=== PATIENT | female | born 1955 | race Caucasian/White ===

== ENCOUNTER 2018-12-29 07:02 | Inpatient (IN) | payer MEDICAID ==
[~2018-12-29] VITALS: Ht 160 cm; Wt 103.0 kg
[~2018-12-29 07:02] MED LIST: ATOR40TA70 PO; CELE200C PO; METO100T16 PO
[2018-12-29] MEDS ORDERED: LACTATED RINGERS 1,000 ML IV SCH (08:30)
[2018-12-29 08:36] LABS: BASOPHILS % 0.5 % (0.0-2.0); EOSINOPHILS % 2.6 % (0.0-5.0); HEMATOCRIT. 42.6 % (36.0-48.0); HEMOGLOBIN. 14.8 g/dL (12.0-16.0); LYMPHOCYTES % 35.1 % (20.0-50.0); MEAN CORPUSCULAR HEMOGLOBIN 30.9 pg (28.0-32.0); MEAN CORPUSCULAR VOLUME 89.2 fL (81.0-99.0); MEAN PLATELET VOLUME 7.7 fl (7.4-10.4); MONOCYTES % 7.5 % (2.0-8.0); NEUTROPHILS % 54.3 % (40.0-76.0); PLATELET 257 x1000/uL (130-400); RED BLOOD CELL COUNT 4.77 mill/uL (4.2-5.4); RED CELL DISTRIBUTION WIDTH 14.3 % (11.6-14.6)
[2018-12-29 08:44] LABS: CHLORIDE 107 mEq/L (98-107)
[2018-12-29 08:45] LABS: PARTIAL THROMBOPLASTIN TIME 27.6 sec (23.4-31.0); PROTHROMBIN TIME 10.6 sec (9.6-11.0)
[2018-12-29 08:52] LABS: CLARITY URINE CLOUDY (CLEAR); COLOR URINE YELLOW (YELLOW); KETONES URINE NEGATIVE (NEGATIVE); LEUKOCYTE ESTERASE URINE TRACE (NEGATIVE); NITRITE URINE NEGATIVE (NEGATIVE); OCCULT BLOOD URINE NEGATIVE (NEGATIVE); PROTEIN URINE NEGATIVE (NEGATIVE); SPECIFIC GRAVITY URINE 1.026 (1.005-1.030); UROBILINOGEN URINE 0.2 E.U./dL (0.2-1.0)
[2018-12-29] MEDS ORDERED: CODE1CAP35 PO (09:23)
[2018-12-29 11:25] LABS: CLARITY URINE CLEAR (CLEAR); COLOR URINE YELLOW (YELLOW); KETONES URINE NEGATIVE (NEGATIVE); LEUKOCYTE ESTERASE URINE NEGATIVE (NEGATIVE); NITRITE URINE NEGATIVE (NEGATIVE); OCCULT BLOOD URINE NEGATIVE (NEGATIVE); PROTEIN URINE NEGATIVE (NEGATIVE); SPECIFIC GRAVITY URINE 1.012 (1.005-1.030); UROBILINOGEN URINE 0.2 E.U./dL (0.2-1.0)
[2018-12-29] MEDS ORDERED: HYDROCODONE/ACETAMINOPHEN 10/325MG TABLET PO PRN ×2 (12:15)
[2018-12-29] MEDS ORDERED: ACETAMINOPHEN 325MG TABLET PO PRN (12:15)
[2018-12-29] MEDS ORDERED: TRANEXAMIC ACID 1,000 MG in SODIUM CHLORIDE 0.9% 100 ML IV NR (12:15)
[2018-12-29] MEDS ORDERED: ZOLPIDEM TARTRATE 5MG TABLET PO PRN (12:15)
[2018-12-29] MEDS ORDERED: TRANEXAMIC ACID 1,000 MG/10 ML IV ONE (12:15)
[2018-12-29] MEDS ORDERED: MAGNESIUM HYDROXIDE 400MG/5ML 30ML UDC PO PRN (12:15)
[2018-12-29] MEDS ORDERED: ONDANSETRON HCL 4MG/2ML INJ IV PRN (12:15)
[2018-12-29] MEDS ORDERED: BUPIVACAINE/EPINEPH/PF 0.25%/0.0005 10ML ONE (12:30)
[2018-12-29] MEDS ORDERED: METHYLENE BLUE 50 MG/10 ML AMP IV ONE (12:30)
[2018-12-29] MEDS ORDERED: VANCOMYCIN HCL 500 MG/VIAL ONE (12:31)
[2018-12-29] MEDS ORDERED: MORPHINE SULFATE/PF 1MG/ML 10ML AMP ONE (12:31)
[2018-12-29] MEDS ORDERED: GENTAMICIN SULF 40MG/ML 2ML VIAL ONE (12:31)
[2018-12-29] MEDS ORDERED: EPINEPHRINE 1:1000 1 MG/ML AMP ONE (12:31)
[2018-12-29] MEDS ORDERED: BACITRACIN 50,000 UNITS/VIAL ONE (12:32)
[2018-12-29] MEDS ORDERED: ROCURONIUM BROMIDE 10MG/ML VIAL 5ML IV ONE (12:37)
[2018-12-29] MEDS ORDERED: FENTANYL CITRATE/PF 50MCG/ML 2ML VIAL ONE (12:37)
[2018-12-29] MEDS ORDERED: NEOSTIGMINE METHYLSULFATE 1MG/ML 10 ML VIAL ONE (12:37)
[2018-12-29] MEDS ORDERED: PROPOFOL 200MG/20ML VIAL IV ONE (12:38)
[2018-12-29] MEDS ORDERED: GLYCOPYRROLATE 0.2 MG/ML 2ML VIAL ONE (12:38)
[2018-12-29] MEDS ORDERED: MIDAZOLAM HCL 2 MG/2 ML VIAL ONE ×2 (12:38→12:55)
[2018-12-29] MEDS ORDERED: DEXAMETHASONE 4MG/ML 1ML VIAL ONE (12:49)
[2018-12-29] MEDS ORDERED: EPHEDRINE SULFATE 50MG/ML VIAL ONE (13:52)
[2018-12-29] MEDS ORDERED: DIPHENHYDRAMINE 50MG/ML VIAL IM PRN (16:45)
[2018-12-29] MEDS ORDERED: NALOXONE INJ IV PRN (18:09)
[2018-12-29] MEDS ORDERED: DIPHENHYDRAMINE INJ IV PRN (18:09)
[2018-12-29] MEDS ORDERED: HYDROMORPHONE PCA 10MG/50ML IV PRN (18:09)
[2018-12-29] MEDS: ONDANSETRON INJ IV PRN (18:25)
[2018-12-29 20:00] VITALS: BP 113/55
[2018-12-29] MEDS: CEFAZOLIN 2,000 MG in DEXT 5% WATER 100 ML IV SCH (22:31)
[2018-12-30] VITALS: BP 111/51
[2018-12-30] MEDS: ONDANSETRON INJ IV PRN (03:56)
[2018-12-30 04:00] VITALS: BP 124/55
[2018-12-30] MEDS: CEFAZOLIN 2,000 MG in DEXT 5% WATER 100 ML IV SCH (07:07)
[2018-12-30] MEDS: ENOXAPARIN 30MG/0.3ML SYR SUBCUT SCH ×2 (08:56→20:37)
[2018-12-30] MEDS: DOCUSATE SODIUM 100MG CAPSULE PO SCH ×2 (08:58→17:00)
[2018-12-30 15:25] LABS: BASOPHILS % 0.3 % (0.0-2.0); EOSINOPHILS % 0.2 % (0.0-5.0); HEMATOCRIT. 34.6 % (36.0-48.0); HEMOGLOBIN. 11.9 g/dL (12.0-16.0); LYMPHOCYTES % 19.1 % (20.0-50.0); MEAN CORPUSCULAR HEMOGLOBIN 30.9 pg (28.0-32.0); MEAN CORPUSCULAR VOLUME 89.8 fL (81.0-99.0); MEAN PLATELET VOLUME 7.6 fl (7.4-10.4); MONOCYTES % 10.4 % (2.0-8.0); PLATELET 239 x1000/uL (130-400); RED BLOOD CELL COUNT 3.85 mill/uL (4.2-5.4); RED CELL DISTRIBUTION WIDTH 13.8 % (11.6-14.6)
[2018-12-30 15:37] LABS: CHLORIDE 105 mEq/L (98-107)
[2018-12-30 20:00] VITALS: BP 122/56
[2018-12-30] MEDS ORDERED: ATORVASTATIN CALCIUM 40MG TABLET PO SCH (21:00)
[2018-12-31] VITALS: BP 138/58
[2018-12-31] MEDS: ONDANSETRON INJ IV PRN (03:12)
[2018-12-31 04:00] VITALS: BP 131/58
[2018-12-31] MEDS ORDERED: METOPROLOL TARTRATE 100MG TABLET PO SCH (09:00)
[2018-12-31] MEDS: DOCUSATE SODIUM 100MG CAPSULE PO SCH (09:36)
[2018-12-31] MEDS: ENOXAPARIN 30MG/0.3ML SYR SUBCUT SCH (09:37)
[2018-12-31 14:00] VITALS: BP 160/71
== END 2018-12-31 14:40 | disposition home health service (06) | DRG 302 ==
LOC: OR 07:02 → 6EST 20:25
PROVIDERS: ADMIT Orthopaedic Surgery; ATTEND Orthopaedic Surgery
PROC: 0SRC0J9 Replacement of Right Knee Joint with Synthetic Substitute, Cemented, Open Approach (ICD-10-PCS; principal; 2018-12-29)
DX: M17.11 Unilateral primary osteoarthritis, right knee (principal); Z68.41 Body mass index [BMI] 40.0-44.9, adult; E66.9 Obesity, unspecified; E78.5 Hyperlipidemia, unspecified; M65.9 Synovitis and tenosynovitis, unspecified; Z96.652 Presence of left artificial knee joint; G89.29 Other chronic pain; G43.909 Migraine, unspecified, not intractable, without status migrainosus; I10 Essential (primary) hypertension; Z91.19 Patient's noncompliance with other medical treatment and regimen
CPT/HCPCS: 36415; 73560; 80048; 81003; 86850; 86900; 88305; 88311; 97110; 97162; 97166; 97530; 97535; C1713; C1776; J0171; J0690; J1100; J1170; J1580; J1650; J2250; J2274; J2405; J2704; J2710; J3010; J3370; J3490; J7050; J7060; L1830; Q9968